=== PATIENT | male | born 1970 | race Hispanic/Latino ===

== ENCOUNTER 2018-10-04 19:32 | Emergency (ER) | payer BC ==
[2018-10-04] MEDS ORDERED: PREDNISONE 20 MG TABLET ONE (19:53)
[2018-10-04] MEDS ORDERED: KETOROLAC TROMETHAMINE 60 MG/2 ML VIAL ONE (19:54)
== END 2018-10-04 20:56 | disposition home or self-care (01) ==
LOC: EDH 19:32
DX: M10.032 Idiopathic gout, left wrist (principal); Z90.49 Acquired absence of other specified parts of digestive tract
CPT/HCPCS: 96372; 99284; J1885

== ENCOUNTER 2018-10-07 18:28 | Emergency (ER) | payer BC ==
[2018-10-07] MEDS ORDERED: DEXAMETHASONE SOD PHOSPHATE 10MG/ML 1ML VIAL ONE (19:43)
[2018-10-07] MEDS ORDERED: NAPROXEN 500 MG TABLET ONE (19:43)
== END 2018-10-07 20:21 | disposition home or self-care (01) ==
LOC: EDH 18:28
DX: M10.9 Gout, unspecified (principal); M10.032 Idiopathic gout, left wrist; Z90.49 Acquired absence of other specified parts of digestive tract
CPT/HCPCS: 73110; 96372; 99284; J1100

== ENCOUNTER → 2019-01-16 | Outpatient (CLI) | payer BC ==
[~2019-01-16] VITALS: Ht 180.3 cm; Wt 112.5 kg
[~2019-01-16] MED LIST: REGADENOSON 0.4 MG/5 ML PF SYG IVP SCH
== END | disposition home or self-care (01) ==
LOC: SHCH 08:50
PROVIDERS: ATTEND Internal Medicine Cardiovascular Disease
DX: R06.02 Shortness of breath (principal)
CPT/HCPCS: 78452; 93017; 96374; A9500 ×2; J2785